=== PATIENT | male | born 1960 | race Caucasian/White ===

== ENCOUNTER 2021-04-22 22:52 | Emergency (ER) | payer OTHER ==
[2021-04-22 22:58] VITALS: BP 156/96; PULSE 92; RESP 16; TEMP 98
== END 2021-04-23 01:00 | disposition home or self-care (01) ==
LOC: EC 22:52
DX: S21.231A Puncture wound without foreign body of right back wall of thorax without penetration into thoracic cavity, initial encounter (principal); X58.XXXA Exposure to other specified factors, initial encounter
CPT/HCPCS: 99283